=== PATIENT | female | born 1950 ===

== ENCOUNTER 2017-03-15 13:31 | Emergency (ER) | payer MEDICARE, OTHER ==
--- NOTE | 2017-03-15 13:38 | ED Physician Documentation ---
General Adult - HISTORIAN Historian: patient - HPI Stated Complaint: R flank pain Chief Complaint: General Adult Onset: hours Timing: still present Severity: moderate Further Comments: yes (Pt is a 67 yo female with R flank pain that began yesterday. Pain had been intermittent, at times 9/10 in severity, at other times mild. Pt has had nausea. Pt reports no urinary sx, no fever, normal bm' s.) - ROS CONST: no problems EYES/ENT: none CVS/RESP: other (heavy smoker) GI/: abdominal pain (R flank) MS/SKIN/LYMPH: none - PAST HX Past History: other () Allergies/Adverse Reactions: Allergies Allergy/AdvReac Type Severity Reaction Status Date / Time No Known Allergies Allergy Verified 03/15/17 13:42 Home Medications: Ambulatory Orders Medication Instructions Recorded Ciprofloxacin HCl [Cipro] 500 mg PO BID #28 tablet 03/15/17 - SOCIAL HX Smoking History: greater than 1 pack/day - FAMILY HX Family History: No - REVIEWED ASSESSMENTS Nursing Assessment Reviewed: Yes Vitals Reviewed: Yes Progress - Progress Progress: CT abd/pelvis w/o contrast: Prominent right kidney. Significant dilation of the right ureter and intrarenal collecting system. Significant adjacent stranding/fluid. No identifiable stone centrally. Could represent sequela of a recently passed stone though another consideration is ureteric rupture with the ureterolithiasis representing one of the pelvic calcifications (specifically the calcification posterior to the bladder). Urology consultation recommended. U/A - 2+ blood; 3+ protein; 2+ leukocytes d/w Dr. Maradiaga, [facility] urology. CT report and sx c/w kidney stone that passed. D/c pt home on abx x 14 days. Return to er if sx recur. d/c instructions: Rx Ciprofloxacin 500 mg. Take one every 12 hrs for 14 days. 1st dose in ER. Return to ER if significant pain returns or you have new symptoms, such as nausea/vomiting fever or new concerns. General Adult Physical Exam - PHYSICAL EXAM GENERAL APPEARANCE: moderate distress EENT: pharynx normal NECK: normal inspection, supple RESPIRATORY: no resp distress, chest non-tender, breath sounds normal CVS: reg rate & rhythm, heart sounds normal ABDOMEN: soft, no organomegaly, normal bowel sounds, tenderness (R abd) BACK: CVA tenderness (R) SKIN: warm/dry, normal color EXTREMITIES: non-tender, normal range of motion, no evidence of injury NEURO: oriented X3, motor nml, sensation nml Discharge Clincal Impression: possible kidney stone (passed), Pyelonephritis Prescriptions: Ciprofloxacin HCl [Cipro] 500 mg PO BID #28 tablet Referrals: Cameron Jackson MD [Primary Care Provider] - Condition: Stable Disposition: 01 HOME, SELF-CARE Decision to Admit: NO Decision Time: 16:27
[2017-03-15] MEDS: 0.9 % SODIUM CHLORIDE 500 ML IV ONE (13:50)
[2017-03-15 13:58] LABS: BASOPHILS % 0.3 (0.0-1.5); EOSINOPHILS % 0.4 % (0.0-6.8); MEAN CORPUSCULAR HEMOGLOBIN 29.1 pg (28.0-34.0); MEAN CORPUSCULAR VOLUME 89.5 fl (80.0-100.0); MONOCYTES % 5.9 % (0.0-11.0)
[2017-03-15 14:13] LABS: eGFR (African) > 60; eGFR (Non-African) > 60
[2017-03-15] MEDS ORDERED: KETOROLAC TROMETHAMINE 30 MG/1ML VIAL IVP ONE (15:27)
--- NOTE | 2017-03-15 15:32 | Diagnostic Imaging Report ---
LEÓN SHIRA Joanne FOREMAN [facility] [address] [facility] [address] [place], [place]. [address] Report Submission Date: Mar 15, 2017 2:57:27 PM RN CLINICAL DOCUMENTATION Patient Study Name: YARELIS BOWLING Date: Mar 15, 2017 2:29:08 PM RN CLINICAL DOCUMENTATION Modality Type: CT\SR Gender: F Description: CT ABD & PELVIS W/O CO : 52 Institution: [facility] Physician: LEÓN SHIRA Joanne FOREMAN Examination: CT Abdomen/pelvis History: Right flank discomfort Comparison exams: None available Technique: CT Abdomen/pelvis without contrast protocol. Findings: Significant dilation of the right kidney. No overt cortical or calyceal calcification. Significant dilation of the intrarenal collecting system and ureter in its course through the abdomen and pelvis. Significant periureteric stranding/fluid. No identifiable stone centrally. Numerous pelvic calcifications/phleboliths. Left kidney without abnormal dilation. No cortical calcification. Left ureter without abnormal dilation or calcifications in its tract through the abdomen and pelvis. Bladder margin thickened. Liver with a cyst within the left hepatic lobe. Spleen, adrenal glands, pancreas and gallbladder are without irregularity given exam technique. No gallstone. Abdominal aorta with mild peripheral atherosclerotic disease. No aneurysmal dilation. Cardiac silhouette not enlarged. No pericardial effusion. Bowel without contrast limiting evaluation. No evidence for acute mesenteric inflammation or free air. Stool throughout the large bowel limiting sensitivity. Appendix not visualized. Tubal ligation clips. Osseous structures demonstrate degenerative changes. Lung bases without infiltrate. No effusion. Impression: Prominent right kidney. Significant dilation of the right ureter and intrarenal collecting system. Significant adjacent stranding/fluid. No identifiable stone centrally. Could represent sequela of a recently passed stone though another consideration is ureteric rupture with the ureterolithiasis representing one of the pelvic calcifications (specifically the calcification posterior to the bladder). Urology consultation recommended. Thickened bladder mucosa - nondistention versus inflammation/cystitis. No gallstone. No abnormal bowel dilation or inflammation. Electronically signed on Mar 15, 2017 2:57:27 PM RN CLINICAL DOCUMENTATION by: Anselmo KENNEDY
[2017-03-15] MEDS ORDERED: CIPROFLOXACIN HCL 500 MG TABLET PO ONE ×2 (15:48→16:21)
[2017-03-15 17:08] VITALS: BP 165/84
[2017-03-16 06:23] LABS: APPEARANCE,URINE CLOUDY (CLEAR); COLOR,URINE YELLOW (YELLOW); OCCULT BLOOD,URINE 2+ (NEGATIVE); PH URINE 5.5 (5.0 - 8.0); UROBILINOGEN URINE 0.2 Eu (0.2-1.0)
== END 2017-03-15 16:25 | disposition home or self-care (01) ==
LOC: ED 13:31
DX: N12 Tubulo-interstitial nephritis, not specified as acute or chronic (principal)
CPT/HCPCS: 74176; 80053; 81002; 83690; 83880; 85025; 87040; 87086; J7060; 96360; 99283

== ENCOUNTER 2017-06-05 13:14 | Emergency (ER) | payer MEDICARE, OTHER ==
[2017-06-05 13:22] VITALS: BP 123/68
--- NOTE | 2017-06-05 13:51 | ED Physician Documentation ---
Lower Extremity Injury - HISTORIAN Historian: patient - HPI Stated Complaint: L knee pain Chief Complaint: Lower Extremity Injury Additional Information: Patient slipped on ice and landed on her left knee. Has had immediate pain. Catching sensation when extending knee after flexion. Patient denies any other injuries. No head trauma. Pain with walking. Onset: hours (2 hours) Where: home Context: fall (slipped on ice) Associated Symptoms:: swelling, snapping sensation - ROS CONST: no problems. denies: fever, chills - PAST HX Past History: none Immunizations: referred to PCP Allergies/Adverse Reactions: Allergies Allergy/AdvReac Type Severity Reaction Status Date / Time No Known Allergies Allergy Verified 06/05/17 13:22 Home Medications: Ambulatory Orders Medication Instructions Recorded Hydrocodone/Acetaminophen 1 each PO Q4 #20 tablet 06/05/17 [Hydrocodon-Acetaminophen 5-325] - SOCIAL HX Smoking History: greater than 1 pack/day (1 1/2 ppd) Alcohol Use: none Drug Use: none - FAMILY HX Family History: no significant history - VITAL SIGNS Vital Signs: Vital Signs Temp Pulse Resp BP Pulse Ox 98.3 F 74 17 123/68 100 06/05/17 13:14 06/05/17 13:14 06/05/17 13:14 06/05/17 13:14 06/05/17 13:14 - REVIEWED ASSESSMENTS Nursing Assessment Reviewed: Yes Vitals Reviewed: Yes ED Results Lab/Radiology - Orders Orders: ED Orders Category Date Time Status Knee Immobilizer 1T Care 06/05/17 13:58 Active KNEE 3 VIEWS [RAD] Stat Exams 06/05/17 Completed Diph,Pertuss(Acell),Tet Vac/Pf [Adacel] Med 06/05/17 14:00 Ordered 0.5 ml IM 1T Lower Extremities Injury Phy - Physical Exam General Appearance: no acute distress, alert Hips: bilateral hip: non-tender, normal inspection, normal range of motion, no evidence of injury Legs: bilateral: non-tender, normal inspection, normal range of motion, no evidence of injury Knees: right: non-tender, normal inspection, normal range of motion, no evidence of injury, left: bone tenderness, pain, swelling (over anterior knee), N/A: ecchymosis (none), other (abrasion to the left knee) Ankle: bilateral: non-tender, normal inspection, normal range of motion, no evidence of injury Ligaments: No: pain on medial stress, laxity on medial stress, pain on lateral stress, laxity on lateral stress Gait: limited by pain Neuro/Vascular/Tendon: no vascular compromise, motor nml, sensation nml Head/ENT: nml inspection Neck/Back: nml inspection Resp/CVS: chest non-tender, breath sounds nml, heart sounds nml, rhonchi (faint scattered bilat) Abdomen: non-tender Discharge Clincal Impression: Patellar fracture Qualifiers: Encounter type: initial encounter Fracture type: closed Fracture morphology: comminuted Fracture alignment: displaced Laterality: left Qualified Code(s): S82.042A - Displaced comminuted fracture of left patella, initial encounter for closed fracture Prescriptions: Hydrocodone/Acetaminophen [Hydrocodon-Acetaminophen 5-325] 1 each PO Q4 #20 tablet Referrals: Cameron Jackson MD [Primary Care Provider] - 2 Days Additional Instructions: Wear straight knee immobilizer. Follow-up with orthopedics Condition: Stable Disposition: 01 HOME, SELF-CARE Decision to Admit: NO Date of Decison to Admit: 06/05/17 Decision Time: 13:56
[2017-06-05] MEDS ORDERED: DIPH,PERTUSS(ACELL),TET VAC/PF 0.5 ML DISP.SYRIN IM SCH (14:00)
[2017-06-05] MEDS ORDERED: DIPH,PERTUSS(ACELL),TET VAC/PF 0.5 ML DISP.SYRIN IM ONE (14:02)
--- NOTE | 2017-06-05 14:12 | Diagnostic Imaging Report ---
TRUDI COHEN [facility] [address] [facility].[address] [address] Report Submission Date: Jun 05, 2017 2:06:08 PM INSOLE STIFFENER Patient Study Name: YARELIS BOWLING Date: Jun 05, 2017 1:45:05 PM INSOLE STIFFENER Modality Type: CR Gender: F Description: LOWER EXTREMITY : 52 Institution: [facility] Physician: TRUDI COHEN Examination: Plain film left knee History: FALL; PAIN; SWELLING LT KNEE (Hx) / PAIN POST FALL (DICOM Hx) / PAIN POST FALL (Pt comments) Findings: 3 views of the left knee demonstrates patellar fracture with retraction of the upper portion superiorly. Tibial spine spurring. Medial joint space narrowing. No evidence for cortical disruption of the femur or tibia/ fibula. Anterior soft tissue swelling. Impression: Patellar fracture. Anterior soft tissue swelling. Electronically signed on Jun 05, 2017 2:06:08 PM INSOLE STIFFENER by: Anselmo KENNEDY
== END 2017-06-05 16:00 | disposition home or self-care (01) ==
LOC: ED 13:14
DX: S82.042A Displaced comminuted fracture of left patella, initial encounter for closed fracture (principal); W00.0XXA Fall on same level due to ice and snow, initial encounter; Y92.9 Unspecified place or not applicable; Y93.9 Activity, unspecified; Y99.9 Unspecified external cause status
CPT/HCPCS: 73562; 90715; L1830; 90471; 99283